=== PATIENT | male | born 1980 | race Caucasian/White ===

== ENCOUNTER 2023-11-07 05:12 | Day surgery (SDC) | payer MEDICAID ==
[2023-11-07] MEDS ORDERED: fentaNYL 100 MCG/2 ML SDV IV ONE (05:13)
[2023-11-07] MEDS ORDERED: Midazolam 1 MG/ML 2 ML SDV IV ONE (05:13)
[2023-11-07] MEDS: Dextrose 5%-0.45% NaCl 1,000 ML IV SCH (06:05)
[2023-11-07] MEDS ORDERED: Midazolam 1 MG/ML 2 ML SDV ONE ×2 (06:14→06:40)
[2023-11-07] MEDS ORDERED: fentaNYL 100 MCG/2 ML SDV ONE (06:14)
[2023-11-07] MEDS: fentaNYL 100 MCG/2 ML SDV IV ONE ×2 (06:24→06:25)
[2023-11-07] MEDS: Midazolam 1 MG/ML 2 ML SDV IV ONE ×3 (06:25→06:29)
[2023-11-07 07:43] VITALS: BP 134/103; PULSE 62
== END 2023-11-07 07:55 | disposition home or self-care (01) ==
LOC: DL.ENDO 05:12
PROVIDERS: ATTEND Internal Medicine Gastroenterology
DX: R12 Heartburn (principal)
CPT/HCPCS: 43239; 87077; J2250; J3010; J7799